=== PATIENT | male | born 1990 ===

== ENCOUNTER 2017-09-17 19:37 | Emergency (ER) | payer SELFPAY ==
[2017-09-17 19:53] VITALS: RESP 20; TEMP 98.6
--- NOTE | 2017-09-17 20:38 | C.PDOC ---
History Of Present Illness 27 year old male with a Hx of HTN presents the ER with a complaint of right foot redness and pain that began today. Patient denies other PMHx, weakness, numbness, or fever. Time Seen by Provider: 09/17/17 20:00 Chief Complaint (Nursing): Lower Extremity Problem/Injury History Per: Patient History/Exam Limitations: no limitations Onset/Duration Of Symptoms: Hrs Current Symptoms Are (Timing): Still Present Recent travel outside of the [place]: No Past Medical History Reviewed: Historical Data, Nursing Documentation, Vital Signs Vital Signs: Last Vital Signs Temp 98.6 F 09/17/17 19:49 Pulse 73 09/17/17 20:54 Resp 20 09/17/17 20:54 BP 132/87 09/17/17 20:54 Pulse Ox 97 09/17/17 20:54 Family History: States: Unknown Family Hx - Social History Hx Alcohol Use: No Hx Substance Use: No Review Of Systems Constitutional: Negative for: Fever Musculoskeletal: Positive for: Foot Pain Skin: Positive for: Other (Redness) Neurological: Negative for: Weakness, Numbness Physical Exam - Physical Exam Appears: Non-toxic Skin: Warm, Dry Head: Atraumatic, Normacephalic Eye(s): bilateral: Normal Inspection Extremity: Normal ROM (x4), Capillary Refill (<2 seconds), No Deformity, Other ( 6-7cm area of erythema, tenderness, and swelling to the right foot) Pulses: Left Dorsalis Pedis: Normal, Right Dorsalis Pedis: Normal Neurological/Psych: Oriented x3, Normal Speech, Normal Motor, Normal Sensation Gait: Steady ED Course And Treatment O2 Sat by Pulse Oximetry: 98 (Room air) Pulse Ox Interpretation: Normal Medical Decision Making Medical Decision Making: Right foot x-ray ordered. Toradol and prednisone administered. Disposition - Disposition Referrals: [facility] [Outside] Disposition: HOME/ ROUTINE Disposition Time: 21:05 Condition: FAIR Additional Instructions: Follow up with the medical doctor within 1-2 days for wound check. Return if worsened such as fever or spread of redness. Prescriptions: Clindamycin [Cleocin] 300 mg PO TID #30 cap Ibuprofen [Motrin] 600 mg PO TID #21 tab predniSONE [Prednisone] 20 mg PO BID #10 tab Instructions: Gout Forms: [employer] (Faroese) Print Language: MONGOLIAN - Clinical Impression Clinical Impression: Gout attack - PA / CORPORATE DIRECTOR OF HUMAN RESOURCES / Resident Statement MD/DO has reviewed & agrees with the documentation as recorded. - Scribe Statement The provider has reviewed the documentation as recorded by the Scribalden Barakat All medical record entries made by the Denniseibalden were at my direction and personally dictated by me. I have reviewed the chart and agree that the record accurately reflects my personal performance of the history, physical exam, medical decision making, and the department course for this patient. I have also personally directed, reviewed, and agree with the discharge instructions and disposition.
[2017-09-17 20:54] VITALS: BP 132/87; PULSE 73
[2017-09-17 21:05] VITALS: O2SAT 98
--- NOTE | 2017-09-18 10:04 | RAD ---
PROCEDURE: Right Foot Radiographs. HISTORY: Erythema and swelling to dorsal foot COMPARISON: None. FINDINGS: BONES: No evidence of acute displaced fracture nor dislocation. No cortical destructive changes. Questionable bone island or osteoma head 4th metatarsal JOINTS: Normal. SOFT TISSUES: There appears to be mild dorsal soft tissue swelling nonspecific OTHER FINDINGS: None. IMPRESSION: No evidence of acute displaced fracture nor dislocation. Mild dorsal soft tissue swelling nonspecific. Rule out cellulitis
== END 2017-09-17 21:14 | disposition home or self-care (01) ==
LOC: C.ER 19:37
DX: M10.9 Gout, unspecified (principal)
CPT/HCPCS: 73630; 96372; 99284; J1885